=== PATIENT | female | born 1955 | race Caucasian/White ===

== ENCOUNTER 2019-09-15 21:46 | Emergency (ER) | payer OTHER ==
[2019-09-15] MEDS ORDERED: KETOROLAC TROMETHAMINE 30MG/ML ONE (22:55)
[2019-09-15] MEDS ORDERED: DIAZEPAM 5 MG TABLET ONE (22:55)
== END 2019-09-16 00:30 | disposition home or self-care (01) ==
LOC: EDH 21:46
DX: M79.605 Pain in left leg (principal); I10 Essential (primary) hypertension; Z88.0 Allergy status to penicillin; Z88.6 Allergy status to analgesic agent
CPT/HCPCS: 93971; 96372; 99284; J1885